=== PATIENT | male | born 1950 ===

== ENCOUNTER 2022-09-03 10:02 | Inpatient (IN) | payer OTHER ==
[~2022-09-03] VITALS: Ht 58.4 cm; Wt 5.0 kg
[2022-09-03] MEDS ORDERED: DILANTIN100 MG PO (11:56)
[2022-09-03] MEDS ORDERED: CLONAZEPAM0.5 MG PO (11:57)
[2022-09-03] MEDS ORDERED: WARF PO (11:57)
[2022-09-03] MEDS ORDERED: ATORVASTATIN CA20 MG PO (11:58)
[2022-09-09] MEDS ORDERED: WARFARIN SODIUM5 MG (08:11)
[2022-09-09] MEDS ORDERED: HYDROCHLOROTH12.5 MG (08:11)
[2022-09-12] MEDS ORDERED: NEURONTIN300 MG PO (13:48)
[2022-09-12] MEDS ORDERED: ACETAMINOPHEN500 M2 PO (13:48)
== END 2022-09-12 14:25 | disposition home or self-care (01) | DRG 330 ==
LOC: SURH 09-09 05:27 → O/R 09-09 05:27 → SURG 09-09 07:00 → O/R 09-09 11:42 → SURH 09-09 13:50
PROVIDERS: ADMIT Surgery; ATTEND Surgery
PROC: 0DBP4ZZ Excision of Rectum, Percutaneous Endoscopic Approach (ICD-10-PCS; 2022-09-09)
PROC: 07BC4ZZ Excision of Pelvis Lymphatic, Percutaneous Endoscopic Approach (ICD-10-PCS; 2022-09-09)
PROC: 8E0W4CZ Robotic Assisted Procedure of Trunk Region, Percutaneous Endoscopic Approach (ICD-10-PCS; 2022-09-09)
PROC: 0DJD8ZZ Inspection of Lower Intestinal Tract, Via Natural or Artificial Opening Endoscopic (ICD-10-PCS; 2022-09-09)
PROC: 3E0F7SF Introduction of Other Gas into Respiratory Tract, Via Natural or Artificial Opening (ICD-10-PCS; 2022-09-09)
PROC: 0DTN4ZZ Resection of Sigmoid Colon, Percutaneous Endoscopic Approach (ICD-10-PCS; principal; 2022-09-09 07:00)
DX: D12.5 Benign neoplasm of sigmoid colon (principal); K92.1 Melena; D12.0 Benign neoplasm of cecum; R59.0 Localized enlarged lymph nodes; I11.9 Hypertensive heart disease without heart failure; I25.10 Atherosclerotic heart disease of native coronary artery without angina pectoris; G40.909 Epilepsy, unspecified, not intractable, without status epilepticus; Z79.01 Long term (current) use of anticoagulants
CPT/HCPCS: 44207; 38571; 44213; 45300; S2900